=== PATIENT | female | born 1995 | race Caucasian/White ===

== ENCOUNTER → 2021-12-14 13:10 | Outpatient (CLI) | payer BC, SELFPAY ==
--- NOTE | ~2021-12-14 | US_ITS ---
EXAMINATION: US OB <= 14 weeks fetus DATE: 12/14/2021 13:43 INDICATION: First trimester dating TECHNIQUE: Real-time pelvic transabdominal and transvaginal ultrasound was performed. COMPARISON: None. FINDINGS: The uterus measures 13.9 x 5.8 x 8 cm. There is an intrauterine gestational sac. A yolk sa c is identified. heart motion is identified measuring 169 beats per minute (bpm) by M-mode Dopp ler. The crown rump length measures 3.4 cm , which correlates with an estimated gestational age of 10 weeks and 2 day(s) (+/-) 6 day(s). The ovaries are not visualized however no adnexal abnormality is seen. There is no free fluid in the pelvis. IMPRESSION: 1. Live intrauterine with an estimated gestational age of 10 weeks and 2 day(s) (+/-) 6 day (s) and an estimated delivery date of 07/10/2022. Reviewed, dictated and finalized at location F. IMPRESSION: 1. Live intrauterine with an estimated gestational age of 10 weeks an d 2 day(s) (+/-) 6 day(s) and an estimated delivery date of 07/10/2022.
== END ==
PROVIDERS: PCP Family Medicine; Visit Provider Advanced Practice Midwife
DX: Z34.91 Encounter for supervision of normal pregnancy, unspecified, first trimester (principal); Z3A.10 10 weeks gestation of pregnancy
CPT/HCPCS: 76801

== ENCOUNTER → 2022-02-15 13:51 | Outpatient (CLI) | payer BC, SELFPAY ==
--- NOTE | ~2022-02-15 | US_ITS ---
EXAMINATION: US OB /maternal detail DATE: 02/15/2022 15:05 INDICATION: Second trimester anatomic survey TECHNIQUE: Real-time ultrasound of the pelvis was performed. COMPARISON: None. FINDINGS: There is a single living fetus in vertex presentation. The placenta is anterior and 3.9 cm from the i nternal cervical os. The cervical length is 4 cm. heart rate is 153 beats per minute (bpm). Fe rosmery cardiac activity and movement are noted. The amniotic fluid index is subjectively normal. The following anatomy was identified as normal: 4 chamber heart 3 vessel cord cord insertion kidneys urinary bladder stomach spine diaphragm ventricles cisterna magna cerebellum The following biometric data were obtained: Biparietal diameter (BPD): 4.5 cm; head circumference (HC): 16.6 cm; abdominal circumference (AC): 14 .7 cm; femur length (FL): 2.9 cm. These measurements are concordant. Estimated weight is 291 g +/- 43 g, which correlates with the 54th percentile when 07/10/2022 is used as estimated date of delivery. As single measurements, these parameters are each equal to the following estimated gestational ages w ith ranges of +/- 2 standard deviations: BPD: 19 weeks 4 days ( 17 weeks 6 days - 21 weeks 3 days). HC: 19 weeks 2 days ( 17 weeks 6 days - 20 weeks 6 days). AC: 20 weeks 0 days ( 17 weeks 6 days - 22 weeks 0 days). FL: 18 weeks 6 days ( 17 weeks 0 days - 20 weeks 4 days). estimated gestational age based solely on measurements from this exam is 19 weeks 3 days +/- 1 weeks 3 days. IMPRESSION: 1. Single living fetus in vertex presentation. 2. Estimated weight is 291 g +/- 43 g, which correlates with the 54th percentile when 07/10/2022 is used as estimated date of delivery. Reviewed, dictated and finalized at location A. IMPRESSION: 1. Single living fetus in vertex presentation. 2. Estimated weight is 291 g +/- 43 g, which correlates with the 54th per centile when 07/10/2022 is used as estimated date of delivery.
== END ==
PROVIDERS: PCP Advanced Practice Midwife; Visit Provider Advanced Practice Midwife
DX: Z36.9 Encounter for antenatal screening, unspecified (principal); Z3A.19 19 weeks gestation of pregnancy
CPT/HCPCS: 76805

== ENCOUNTER → 2022-04-26 10:52 | Outpatient (CLI) | payer BC, SELFPAY ==
--- NOTE | ~2022-04-26 | US_ITS ---
EXAMINATION: US OB follow up DATE: 04/26/2022 11:25 INDICATION: Size greater than dates during third trimester TECHNIQUE: Real-time ultrasound of the pelvis was performed. The interpreting radiologist was not pre sent for the study. COMPARISON: 02/15/2022 FINDINGS: There is a single living fetus in vertex presentation. The placenta is anterior and 6.6 cm from the internal cervical os. cardiac activity and movement are noted. heart rate is 144 beats per minute (bpm). The amniotic fluid index is 17.7 cm which is normal (normal range: 9.2 cm to 23.1 cm). The following biometric data were obtained: Biparietal diameter (BPD): 7.9 cm; head circumference (HC): 28.3 cm; abdominal circumference (AC): 27 .2 cm; femur length (FL): 5.9 cm. These measurements are concordant. Estimated weight is 1715 g +/- 257 g, which correlates with the 94th percentile when 07/10/2022 is used as estimated date of delivery. As single measurements, these parameters are each equal to the following estimated gestational ages w ith ranges of +/- 2 standard deviations: BPD: 31 weeks 5 days +/- 3 weeks 1 days. HC: 31 weeks 0 days +/- 3 weeks 0 days. AC: 31 weeks 2 days +/- 3 weeks 0 days. FL: 30 weeks 6 days +/- 3 weeks 0 days. estimated gestational age based solely on measurements from this exam is 31 weeks 2 days +/- 2 weeks 1 days. IMPRESSION: 1. Single living fetus in vertex presentation. 2. Normal amniotic fluid index. 3. Estimated weight is 1715 g +/- 257 g, which correlates with the 94th percentile when 07/10/19 23 is used as estimated date of delivery. Reviewed, dictated and finalized at location B. 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 Single living fetus in vertex presentation. 2. Normal amniotic fluid index. 3. Estimated weight is 1715 g +/- 257 g, which correlates with the 94th p ercentile when 07/10/2022 is used as estimated date of delivery.
== END ==
PROVIDERS: PCP Obstetrics & Gynecology Gynecology; Visit Provider Obstetrics & Gynecology Gynecology
DX: O36.63X0 Maternal care for excessive fetal growth, third trimester, not applicable or unspecified (principal); Z3A.31 31 weeks gestation of pregnancy
CPT/HCPCS: 76816

== ENCOUNTER → 2022-06-06 08:05 | Outpatient (CLI) | payer BC, SELFPAY ==
--- NOTE | ~2022-06-06 | US_ITS ---
EXAMINATION: US OB follow up DATE: 06/06/2022 08:34 INDICATION: Gestational size greater than dates. TECHNIQUE: Real-time transabdominal obstetric ultrasound. FINDINGS: Comparison to multiple prior studies sequentially, with oldest reviewed study dated 2021. There is a single living fetus in vertex presentation. The placenta is anterior without placenta pre via. DARA is normal measuring 13.1 cm. cardiac activity and movement is noted with a heart rate of 157 beats per minute. T he amniotic fluid volume is normal. The following biometric data were obtained: BPD: 92mm corresponds to gestational age 37 weeks 2 days. Head circumference: 324mm corresponds to gestational age 36 weeks 5 days. Abdominal circumference: 337mm corresponds to gestational age 37 weeks 4 days. Femur length: 68mm corresponds to gestational age 35 weeks 0 days. Estimated weight: 3036grams +/- 455grams, 89% by Hadlock method.] IMPRESSION: 1. Single living intrauterine in vertex presentation with an estimated gestational age of 35 weeks 1 days by inititial ultrasound. Appropriate interval growth. 2. Normal placenta. Reviewed, dictated and finalized at location A. 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 Single living intrauterine in vertex presentation with an estimat ed gestational age of 35 weeks 1 days by inititial ultrasound. Appropriate int erval growth. 2. Normal placenta.
== END ==
PROVIDERS: PCP Advanced Practice Midwife; Visit Provider Advanced Practice Midwife
DX: O36.63X0 Maternal care for excessive fetal growth, third trimester, not applicable or unspecified (principal); Z3A.35 35 weeks gestation of pregnancy
CPT/HCPCS: 76816

== ENCOUNTER 2022-07-04 05:00 | Inpatient (IN) | payer BC, SELFPAY ==
[2022-07-04] VITALS (37 sets, daily range): BP systolic 72–131; BP diastolic 15–115; PULSE 63–125; TEMP 36.2–36.8; BMI 52.9
--- NOTE | 2022-07-04 05:47 | LDADM ---
This patient, Arleth Shaw, was admitted to Labor/Delivery/Recovery 104 on 07/04/22 at 05:00. Plans for labor, pain management and were discussed with patient. Patient/family oriented to hospital policies and general routines including ID bracelet, bed and alarms, visiting hours, pain management, procedures, bathroom and other care routines, personal items, smoking policy, room service/diet and guest tray routines, security routines, and visiting hours. Patient/Family are encouraged to report perceived risks to care and to ask questions if they do not understand what they are told or what they should do. See OBIX for further documentation.
[2022-07-04 06:09] LABS: Basophils Percent Auto 0.3 % (0.2-1.2); Eosinophils Absolute Auto 0.1 K/mm3 (0-0.3); Eosinophils Percent Auto 1.3 % (0-4.4); Hematocrit 33.8 % (37.0-47.0); Hemoglobin 11.5 g/dL (12.0-15.0); Immature Granulocyte Absolute 0.15 K/mm3 (0.00-0.031); Immature Granulocyte Percent A 1.6 % (0-0.5); Lymphocytes Absolute Auto 1.69 K/mm3 (0.9-3.2); Mean Corpuscular Hemoglobin 29.9 pg (26-34); Mean Corpuscular Volume 87.8 fl (80-100); Mean Platelet Volume 10.4 fl (7.4-10.4); Monocytes Absolute Auto 0.7 K/mm3 (0.1-0.6); Monocytes Percent Auto 7.7 % (2.6-8.5); Neutrophils Absolute Auto 6.7 K/mm3 (1.3-6.7); Neutrophils Percent Auto 71.1 % (45.5-73.1); Platelet Count Result 168 k/mm3 (150-375); Red Blood Count 3.85 M/mm3 (4.2-5.4); Red Cell Distribution Width 12.8 % (11.5-14.5); White Blood Count 9.4 K/mm3 (4.5-10.0)
[2022-07-04] MEDS: miSOPROStol 25 MCG TABLET PO ×3 (06:54→15:44)
--- NOTE | 2022-07-04 08:13 | WPDOBADMIT ---
Obstetrics - Admit Note Admission Note: record reviewed. No pertinent additions to the history and/or any subsequent changes in the physical findings that are not consistent with the expected course of the were found. Additions to the history and/or subsequent changes in the physical findings follow. None.
--- NOTE | 2022-07-04 08:14 | PM.OBPNLAB ---
Pain Control Date/time seen: 07/04/22 08:05 Pain control: tolerating well Contractions Monitor mode: External Contraction pattern: Irregular Contraction intensity: Mild Status status: Category l Assessment and Plan Assessment: induction ongoing Comments: CNM at bedside. Discussed plan of care with patient. Will anticipate a 2nd Cytotec unless uterine contractions become stronger and regular. Discussed possible interventions during the induction process including Naylor balloon placement, amniotomy, and placement of an IUPC. Answered patient questions. Blood pressures remain WNL.
[2022-07-04 10:39] LABS: Rapid Plasma Reagin Non-Reactive (NonReactive)
--- NOTE | 2022-07-04 15:44 | PM.OBPNLAB ---
Pain Control Date/time seen: 07/04/22 15:35 Pain control: tolerating well Pelvic Exam Dilation (cm): 1 (1.5) Effacement (%): 50 station: -3 Amniotic membrane status: Intact Comments: Moderate consistency. head palpated. Contractions Monitor mode: External Contraction pattern: Irregular Contraction intensity: Mild Status status: Category l Assessment and Plan Assessment: induction ongoing Comments: CNM at bedside. Discussed next steps in IOL process. Discussed another dose of sublingual cytotec and yousif balloon placement. Pt is agreeable and declines need for epidural. Bedside US performed to confirm vertex presentation. Yousif balloon catheter placed easily through internal os using stylette. Stylette removed and balloon inflated with 60ml sterile saline. Tubing secured to thigh. Plan for cytotec now and pitocin to be started in 4 hours. All questions answered. Spouse present and supportive.
[2022-07-04] MEDS: LACTATED RINGERS 1,000 ML 125 ML IV CONT ×2 (19:30→22:41)
[2022-07-04] MEDS: OXYTOCIN 30 UNITS/NS 500 ML 30 UNITS/500 ML BAG IV CONT (19:31)
[2022-07-05] VITALS (252 sets, daily range): BP systolic 54–137; BP diastolic 13–111; PULSE 28–182; RESP 18; TEMP 36.6–38.3; O2SAT 79–100
[2022-07-05] MEDS: LACTATED RINGERS 1,000 ML 125 ML IV CONT (04:53)
--- NOTE | 2022-07-05 07:05 | PM.OBPNLAB ---
Pain Control Date/time seen: 07/05/22 0650 Pain control: tolerating well and epidural Comments: pt reports her water may have broken as CNM walked into room. Pelvic Exam Dilation (cm): 5 (1.5) Effacement (%): 75 station: -3 Amniotic membrane status: Ruptured Comments: clear fluid. Pt had SROM Contractions Monitor mode: External (RN reports ctx difficult to trace despite frequent toco repositioning. ) Contraction pattern: Irregular Contraction intensity: Moderate Status status: Category l Assessment and Plan Pitocin rate (mU/min): 12 (Decreased to 6ml/hr after SROM confirmed) Assessment: induction ongoing Comments: CNM to bedside. Discussed plan of care. Discussed next steps including amniotomy and recommendation for intrauterine pressure catheter. Patient reports that her water may have just broken. On exam, patient grossly ruptured with clear fluid. IUPC inserted easily and returned clear fluid. Pitocin infusion decreased to 6 mL an hour. Plan to increase Pitocin as needed to achieve adequate contraction pattern. Anticipate vaginal .
--- NOTE | 2022-07-05 12:17 | PM.OBPNLAB ---
Pain Control Date/time seen: 07/05/22 1150 Pain control: tolerating well and epidural Pelvic Exam Comments: No exam at this time Contractions Monitor mode: Internal (RN reports ctx difficult to trace despite frequent toco repositioning. ) Contraction pattern: Regular Assessment and Plan Assessment: induction ongoing Comments: CNM at bedside. tracing reviewed. Discussed plan of care with patient and her family. contractions are becoming closer together and she is nearly adequate. Will defer exam until contractions are adequate for 2 hours, unless there is another indication.
--- NOTE | 2022-07-05 17:32 | PM.OBPNLAB ---
Pain Control Date/time seen: 07/05/22 17:15 Pain control: tolerating well and epidural Comments: Feeling occasional pressure in her pelvis from contractions Pelvic Exam Dilation (cm): 8 (1.5) Effacement (%): 90 station: -1 Amniotic membrane status: Ruptured Contractions Monitor mode: Internal (RN reports ctx difficult to trace despite frequent toco repositioning. ) Contraction pattern: Regular Intrauterine tone measurement: 180 Status status: Category ll Comments: Reassured by moderate variability Assessment and Plan Assessment: active labor Plan: continuous present management Comments: SVT 8 cm. More cervix present on patient's right side. Recommend positioning the patient on far right with left leg on peanut ball to allow for optimal rotation and descent. Patient remains afebrile.
--- NOTE | 2022-07-05 18:21 | PM.OBPNLAB ---
Pain Control Date/time seen: 07/05/22 18:15 Contractions Intrauterine tone measurement: 180 Assessment and Plan Comments: Discussed pt status with Dr. Nagy. Plan for Ampicillin and Gentamycin for chorioamnionitis.
[2022-07-05] MEDS: ACETAMINOPHEN 500 MG TABLET 1000 MG PO (18:32)
[2022-07-05] MEDS: AMPICILLIN 2 GM/NS 100 ML 2 GM/100 ML BAG IVPB (18:42)
[2022-07-05] MEDS: OXYTOCIN 30 UNITS/NS 500 ML 30 UNITS/500 ML BAG 125 UNITS IV CONT (19:34)
[2022-07-05] MEDS: miSOPROStol 200 MCG TABLET 800 MCG RECTAL (19:45)
--- NOTE | 2022-07-05 20:18 | P.PCNOB_ITS ---
OB - Delivery Note Procedure Delivery date: 07/05/22 Procedure: Events: Gestational Hypertension Intrapartal Events: Chorioamnionitis Induction method: Per Misoprostol Protocol and Per Pitocin Protocol Delivery augmentation: Pitocin Delivery monitor: External FHT, External Uterine and Internal Uterine Route of delivery: Episiotomy description: None Laceration Description: Perineal - 2nd Degree Delivery repair: vicryl Specimen: Yes Quantitative Blood Loss (ml): 150 Anesthesia type: Epidural Disposition: Floor Narrative: Patient began pushing with contractions and quickly brought the head to a crown. With 1 push, she delivered the head. There was excellent restitution and delivery of the anterior and posterior shoulders. The was placed on maternal abdomen and dried and stimulated. Care assumed by nursery team. After 1 minute of life the cord was doubly clamped and cut. Cord blood and cord gases were obtained. The placenta delivered easily in Schultze presentation. All delivery counts correct. weight unavailable at the time of this note as is skin to skin on the maternal abdomen and . [place] Baby Date of : 07/05/22 Time of : 19:20 Weeks of gestation at delivery: 39 gender: Female presentation: vertex position: Left Occiput Anterior Placenta delivery description: Spontaneous Cord Vessel Description: 3 Vessels score one minute: 9 score five minutes: 9
[2022-07-05] MEDS: BENZOCAINE 20% AER SPR (*SP) 56 GM CAN 1 SPRAY TOPICAL (21:41)
[2022-07-05] MEDS: WITCH HAZEL 40 PADS 1 PAD TOPICAL (21:41)
--- NOTE | 2022-07-05 22:40 | OBPPTRN ---
Patient transferred to post room #285 via ( wheelchair ). Support person present. Oriented to unit, room, information board, rooming in, admission packet and security measures. Patient verbalizes understanding.
[2022-07-06] MEDS: ACETAMINOPHEN 325 MG TABLET 650 MG PO ×3 (00:05→19:53)
--- NOTE | 2022-07-06 04:38 | PM.OBDSVD ---
DS: Admitting Diagnosis Discharge Date 07/07/22 Admitting Diagnosis 26 y.o. G1PO at 39 weeks [facility] DS: Discharge Diagnosis Discharge Diagnosis (1) (normal spontaneous vaginal delivery): Code(s): O80 - Encounter for full-term uncomplicated delivery Status: Acute (2) Mother currently breast-feeding: Code(s): Z39.1 - Encounter for care and examination of lactating mother Status: Acute (3) Gestational hypertension: Code(s): O13.9 - Gestational [-induced] hypertension without significant proteinuria, unspecified trimester Status: Acute (4) Obesity: Code(s): E66.9 - Obesity, unspecified Status: Acute OB - DS: Summary Hospital Course Hospital Course: Uncomplicated OB Procedures : Ultrasound OB Procedures Intrapartum: Spontaneous Vag Delivery and Other (Antibiotic administration for chorioamnionitis) OB Procedures: : None Peripartum Data Delivery Method: Natural Vaginal Laceration Description: Perineal - 2nd Degree Episiotomy description: None complications: none Time Spent with Patient Time attestation: Total time spent providing and/or coordinating discharge services: Discharge Plan Discharge Attending physician on discharge: Clarita Nagy Discharging Clinician: Clarita Nagy Patient Disposition: Home, Self-Care Activity: may shower Diet: as tolerated and regular Discharge Instructions: Education: Mom and Baby Guide Given to: Mother Follow-Up: Call your delivering provider's office for an appointment to be seen in: 6 Weeks Mom and baby [facility] for the follow-up appointment. Appointment Date/Time: Friday, July 08, 2022 at 8:00 a.m. What to expect at your follow-up visit: Blood Pressure Check Physical Assessment Call [phone] if you are unable to keep your appointment time. BREAST CARE: * Wear a snug supportive bra. * For engorgement discomfort: Breast Feeding: * Apply warm moist washcloths * Express milk as needed to relieve engorgement * Wear loose clothing * For sore nipples: * Identify correct latch-on * Apply warm moist washcloths before and after nursing * Air dry nipples after nursing * May apply Lansinoh cream to nipples EPISIOTOMY/PERINEAL CARE: * Until bleeding stops, use your mily bottle after urinating * Change your pad frequently throughout the day * You may take sitz baths several times a day (fill your bathtub with warm water and soak for 20 minutes.) Do NOT bathe in the water * No tub baths until seen by your physician - You may shower ACTIVITY: * Rest as much as possible. * Do not exercise or lift anything heavier than your baby (such as laundry or other children.) * Avoid stairs or driving as much as possible. * Do not put anything into the vagina. No douching, tampons, or sexual activity until seen by physician. NOTIFY PHYSICIAN IF YOU HAVE ANY QUESTIONS OR IF ANY OF THE FOLLOWING SYMPTOMS OCCUR: * If your perineum becomes red, swollen, or more painful than what you have experienced in the hospital. * If your vaginal bleeding becomes foul smelling. * If your vaginal bleeding becomes more heavy than a period or if your bleeding changes from pink to bright red. However, you may pass an occasional walnut-sized clot once or twice for the first week . * If you experience a sharp, shooting pain in you calves. * If you discover a hard, reddened area on your breast or if you experience flu-like symptoms. DIET: * Eat regular, well-balanced meals. * Drink plenty of fluids daily. If , drink to thirst. Continue taking your vitamin and any other supplements as previously directed (Examples: Iron, Vitamin D). You may take Tylenol 1000mg over the counter every 6 hours as needed for pain. Do not exceed 4
[2022-07-06 04:40] VITALS: BP 131/74; PULSE 92; RESP 18; TEMP 36.9; O2SAT 100; BMI 51.7
[2022-07-06] MEDS: IBUPROFEN 600 MG TABLET PO ×3 (04:43→23:30)
[2022-07-06 05:24] LABS: Hematocrit 31.5 % (37.0-47.0); Hemoglobin 10.3 g/dL (12.0-15.0)
[2022-07-06 08:00] VITALS: BP 124/56; PULSE 86; RESP 18; TEMP 36.3; O2SAT 100
--- NOTE | 2022-07-06 08:19 | PM.OBPNVD ---
OB - PN: Subj Subjective Date/time seen: 07/06/22 0710 Patient comments: no complaints and pain well controlled baby status: doing well and nursing well [place] feeding status: exclusively breast feeding OB - PN: Obj Data Labs 07/06/22 04:49 Labs: Laboratory Results - last 24 hr 07/06/22 04:49 Hgb 10.3 L Hct 31.5 L OB - PN A/P Plan day: 1 Plan: routine care Time Spent With Patient Time: Total time spent is greater than 50% in coordination of care (as documented) at patient's floor/unit and/or counseling patient: Review of Systems Review of Systems: All systems reviewed & are unremarkable except as noted in HPI and below Exam Narrative: Alert and oriented. Mood is pleasant and cooperative. Urinating without difficulty. Denies passing any large clots. Perineum with minimal edema. Fundus firm and below umbilicus. Const: General: cooperative, healthy appearing, no acute distress and alert Orientation/consciousness: patient oriented x3 Limitations: no limitations Resp: Effort & Inspection: normal respiratory effort Auscultation: clear to auscultation bilaterally Cardio: Rate: regular rate GI: Inspection: normal to inspection Neuro: General: patient oriented x3 Extrem: General: normal to inspection Psych: Appearance: grossly normal Mental Status: mental status grossly normal Affect: normal affect Thought process: Normal thought process present
[2022-07-06] MEDS: DOCUSATE SODIUM 100 MG CAPSULE PO ×2 (08:53→15:58)
[2022-07-06] MEDS: MULTIVIT/MIN/PREN/FOL AC/IRON TABLET 1 TAB PO (08:53)
--- NOTE | 2022-07-06 08:58 | WPDANESPN ---
Anes - Prog Note Post-Op Date/Time: 07/06/22 08:58 Cardiovascular status: normal Respiratory status: normal Airway patency: baseline Mental status: baseline Post-Op hydration status: normal Vital Signs: Last Vital Signs Temp 36.9 C 07/06/22 04:40 Pulse 92 07/06/22 04:40 Resp 18 07/06/22 04:40 BP 131/74 07/06/22 04:40 Pulse Ox 100 07/06/22 04:40 O2 Del Method Room Air 07/04/22 05:45 Pain Score (VAS): 0 I/O: Intake & Output 07/05/22 07/06/22 07/06/22 23:59 07:59 15:59 Intake Total 702.25 250 Output Total 150 Balance 552.25 250 Laboratory Tests 07/06/22 04:49 07/06/22 04:49 Hgb 10.3 L Hct 31.5 L Post-procedural complaints: none Patient Feedback: Patient satisfied with anesthetic care.
--- NOTE | 2022-07-06 08:59 | WPDANLDPN2 ---
Anes-Prog Note L&D Date/Time: 07/06/22 08:59 Comfortable throughout: labor and delivery Neuraxial method: epidural Epidural/Spinal procedure site: clean & non-tender Neuro status: Neuro function grossly intact. Cardiovascular status: normal Respiratory status: normal Airway patency: baseline Mental status: baseline Post-Op hydration status: normal Vital Signs: Last Vital Signs Temp 36.9 C 07/06/22 04:40 Pulse 92 07/06/22 04:40 Resp 18 07/06/22 04:40 BP 131/74 07/06/22 04:40 Pulse Ox 100 07/06/22 04:40 O2 Del Method Room Air 07/04/22 05:45 Pain score (VAS): 0 I/O: Intake & Output 07/05/22 07/06/22 07/06/22 23:59 07:59 15:59 Intake Total 702.25 250 Output Total 150 Balance 552.25 250 Post-procedural complaints: none Patient feedback: Patient satisfied with anesthetic care.
[2022-07-06 16:00] VITALS: BP 108/71; PULSE 86; RESP 18; TEMP 36.9; O2SAT 100
[2022-07-06 19:51] VITALS: BP 122/79; PULSE 91; RESP 16; TEMP 36.6
[2022-07-06 23:25] VITALS: BP 137/97; PULSE 74; RESP 20; TEMP 36.4
[2022-07-07] MEDS: ACETAMINOPHEN 325 MG TABLET 650 MG PO (02:24)
[2022-07-07 02:43] VITALS: BP 118/84; PULSE 80; RESP 16; TEMP 36.4
[2022-07-07 08:00] VITALS: BP 135/82; PULSE 88; RESP 18; TEMP 36.8; O2SAT 97
--- NOTE | 2022-07-07 08:47 | PM.OBPNVD ---
OB - PN: Subj Subjective Date/time seen: 07/07/22 08:47 Patient comments: no complaints and pain well controlled baby status: doing well OB - PN: Obj Data Labs 07/06/22 04:49 OB - PN A/P Plan day: 2 Plan: routine care, discharge home, follow up 6 weeks and other (plans condoms) Time Spent With Patient Time: Total time spent is greater than 50% in coordination of care (as documented) at patient's floor/unit and/or counseling patient: Exam : Bimanual exam- vagina & uterus: other (Uterus firm, nt @U)
[2022-07-07] MEDS: MULTIVIT/MIN/PREN/FOL AC/IRON TABLET 1 TAB PO (10:12)
[2022-07-07] MEDS: IBUPROFEN 600 MG TABLET PO (10:13)
[2022-07-07] MEDS: DOCUSATE SODIUM 100 MG CAPSULE PO (10:13)
--- NOTE | 2022-07-07 12:45 | PC.NURSE ---
Patient viewed the discharge video Mother & Baby Care, The First Two Weeks . Patient was given the opportunity and encouraged to ask questions. Patient verbalized understanding of information shared and has been given the mother/baby guide for home reference.
[2022-07-08 07:54] VITALS: BP 130/92; PULSE 83; RESP 20; TEMP 36.6; O2SAT 99
== END 2022-07-07 13:45 | disposition home or self-care (01) | DRG 805 ==
LOC: ANHOB2 07-07 12:49 → ANHLDR 07-09 10:17 → ANHOB2 07-09 10:17
PROVIDERS: Admitting Provider Obstetrics & Gynecology Gynecology; PCP Advanced Practice Midwife; Visit Provider Advanced Practice Midwife
DX: O75.2 Pyrexia during labor, not elsewhere classified (principal); O41.1230 Chorioamnionitis, third trimester, not applicable or unspecified; Z37.0 Single live birth; O13.4 Gestational [pregnancy-induced] hypertension without significant proteinuria, complicating childbirth; O99.214 Obesity complicating childbirth; O76 Abnormality in fetal heart rate and rhythm complicating labor and delivery; Z3A.39 39 weeks gestation of pregnancy
CPT/HCPCS: 36415; 85014; 85018; 85025; 86592; 86850; 86900; 86901; 88307; A9270; J0290; J1580; J2590; J2795; J7120

== ENCOUNTER 2022-07-11 07:00 | Outpatient (CLI) | payer BC, SELFPAY ==
--- NOTE | 2022-07-12 11:27 | PC.NURSE ---
In- 0700 on 07/11/22 and introduction were made. Out- 08 with a plan of following up later with a phone call and an offer of additional assistance if needed. Reason for visit: latch issues and low milk supply History: Mother denies any significant history. Mother was admitted for an induction on 07/04 and delivered on 07/05. History: No significant history. Observations: Mother is somewhat comfortable moving into a football position. Her breast are apart with somewhat of a wide space, sparse hair visualized around the areola with nipples everted. The left nipple has a healing crease injury. Mother was instructed to keep her breast, hands and anything touching her breast clean and dry. Reviewed preventing infections. Breast tissue is flaccid. Infant was placed skin to skin on mother, reviewed stimulating infant for feeding cues and wakefulness. Father states infant had bottle fed 1 oz at 0600. Once feeding cues were visualized and demonstrated some instincts finding the breast, then encouragement to latch effectively was attempted. Several attempts were made to the breast to obtain an optimal latch on the left breast. Educated parents on how to watch and listen for swallowing at the breast. Parents were encouraged to keep actively . Encouraged gentle massage to improve milk removal while breastfeeds and observe swallowing. After a 15 minute feeding had transferred 13mls according to the pre and post weight. Mother was encouraged to not limit on the breast unless there is pain. was again placed skin to skin and stimulated for waking to breastfeed. is reluctant to open with a wide gape. We were unable to encourage to open wide enough to latch effectively. Mother denied pain; however, the nipple was misshaped after the . Reviewed milk production, building, maintaining a milk supply with and/or with pumping. Risks and benefits of pumping were discussed. Related to the infant not transferring adequate milk to regain weight the parents were encouraged to continuing attempting to breastfeed, pump 8-12 times in a 24 hour period 1-2 times at night, then supplement 2-2.5 oz about every 8 hours. Encouraged the parents to follow up with the care provider for weight checks. The parent were instructed to add cold breast milk to cold breast milk along with collection and storage guidelines. When they collect 1 oz of breast milk is given that, then supplemented with formula for weight gain. weight: 3380g Lowest weight: 3020g Last weight: 6-15 reported by parents at the last [facility] appt. Pre-feed weight: 3116g 6-13.9 Post-feed weight: 3137g after on both breast Plan of Care: Parents are going to practice more skin to skin, every 2-3 hours today with pumping and supplementing after each . Mother is encouraged to wait for a big, open, wide gape of 130-150 degrees, latching deeply with pulled close to her body with ear, shoulder and hip aligned, encouraging milk removal and more consistency with milk removal. Follow up plans: Plan was made to follow up with a phone call later today (07/11/22). Phone call was made to follow up to [facility]le[facility]'s phone number [phone] at 1600 on 07/11/22 and a message was left to return phone call to check on progress.
== END 2022-07-11 07:01 | disposition home or self-care (01) ==
PROVIDERS: Visit Provider Pediatrics
DX: O92.3 Agalactia (principal); Z3A.00 Weeks of gestation of pregnancy not specified
CPT/HCPCS: 99213; G0463

== ENCOUNTER 2024-01-23 10:19 | Outpatient (CLI) | payer BC, SELFPAY ==
--- NOTE | ~2024-01-23 | US_ITS ---
Pelvic ultrasound. Clinical History: First trimester , establish dates and viability Technique: Realtime transabdominal scanning of the pelvis was performed. Color flow Doppler and Doppl er spectral analysis were performed. Findings: The uterus is anteverted, and contains an intrauterine gestation. Marienthal-rump length of 2.0 cm corresponds to an estimated gestational age of 8 weeks 4 days. heart rate is 163 bpm. Neither ovary seen. No adnexal mass seen. There is no evidence of free fluid in the cul de sac. Impression: Live intrauterine gestation, with estimated gestational age of 8 weeks 4 days. heart rate is 16 3 bpm. Reviewed, dictated and finalized at location . Impression: Live intrauterine gestation, with estimated gestational age of 8 weeks 4 days. heart rate is 163 bpm.
== END 2024-01-23 10:20 ==
LOC: MICIMG 10:21
PROVIDERS: PCP Family Medicine; Visit Provider Advanced Practice Midwife
DX: O36.80X0 Pregnancy with inconclusive fetal viability, not applicable or unspecified (principal); Z3A.08 8 weeks gestation of pregnancy
CPT/HCPCS: 76801

== ENCOUNTER 2024-04-13 14:56 | Outpatient (CLI) | payer BC, SELFPAY ==
--- NOTE | ~2024-04-13 | US_ITS ---
EXAMINATION: US OB /maternal detail DATE: 04/13/2024 15:38 INDICATION: anatomic survey. TECHNIQUE: Real-time ultrasound of the pelvis was performed. COMPARISON: Ultrasound 01/23/2024 FINDINGS: There is a single living fetus in breech presentation. The placenta is anterior, 3.5 cm from the cer vix. heart rate is 143 beats per minute (bpm). The amniotic fluid volume is subjectively normal . The following biometric data were obtained: Biparietal diameter (BPD): 4.9 cm; head circumference (HC): 17.8 cm; abdominal circumference (AC): 15 .9 cm; femur length (FL): 3.2 cm. These measurements are concordant. Estimated weight is 361 g +/- 54 g, which correlates with the 69th percentile when 08/30/24 is u sed as estimated date of delivery. As single measurements, these parameters are each equal to the following estimated gestational ages: BPD: 20 weeks 5 days. HC: 20 weeks 2 days. AC: 21 weeks 0 days. FL: 20 weeks 0 days. estimated gestational age based solely on measurements from this exam is 20 weeks 4 days +/- 1 weeks 3 days. The cerebral ventricles, cerebellum, cisterna magna, nuchal fold, lip, and spine are normal. The hear t is normal. The diaphragm, stomach, kidneys, and bladder are normal. There are two umbilical arterie s to yield a 3-vessel cord. The cord insertion is normal. IMPRESSION: 1. Single living fetus in breech presentation. 2. Estimated weight is 361 g +/- 54 g, which correlates with the 69th percentile when 08/30/24 is used as estimated date of delivery. This date was set by ultrasound on 01/23/2024. 3. Normal anatomic survey. Reviewed, dictated and finalized at location B. IMPRESSION: 1. Single living fetus in breech presentation. 2. Estimated weight is 361 g +/- 54 g, which correlates with the 69th pe rcentile when 08/30/24 is used as estimated date of delivery. This date was set by ultrasound on 01/23/2024. 3. Normal anatomic survey.
== END 2024-04-13 14:57 | disposition home or self-care (01) ==
LOC: MICIMG 14:59
PROVIDERS: PCP Advanced Practice Midwife; Visit Provider Obstetrics & Gynecology Gynecology
DX: Z36.9 Encounter for antenatal screening, unspecified (principal); Z3A.20 20 weeks gestation of pregnancy
CPT/HCPCS: 76805

== ENCOUNTER 2024-09-03 04:57 | Inpatient (IN) | payer BC, SELFPAY ==
[2024-09-03] VITALS (99 sets, daily range): BP systolic 54–154; BP diastolic 31–116; PULSE 55–168; RESP 14–16; TEMP 36.5–37; O2SAT 74–100; BMI 49.5
--- OUTSIDE RECORDS SUMMARY | 2024-09-03 05:03 | XMS_ITS | Data Portability ---
Author Organization [facility] Address [address] [address] Care Team Providers Care Physician Asst Name Role Phone CUAUHTEMOC RÍOS Primary Care Provider Assessment Encounter Date Assessment Date Assessment LastModified by Organization Details LastModified Time 08/27/2024 08/27/2024 Patient is _39__weeks . Discussed plan. Not available 08/27/2024 15:14:58 09/01/2024 09/01/2024 Patient is 40___weeks . Discussed plan. [email or web address] Not available 09/01/2024 16:36:13 Plan of Treatment Reminders Order Date Submit Date Provider Last Modified By Organization Details Last Modified Time Details Appointments None recorded. Lab None recorded. Referral None recorded. Procedures None recorded. Surgeries None recorded. Imaging non-stress test 2024 025 [email or web address] [place], [address], [place], [address], 08:27:31 US, obstetric, biophysical profile + non-stress test 2024 025 [email or web address] [place], [address], [place], [address], 19:29:43 Medication Orders None recorded. Patient TargetsNo targets recorded. Patient InstructionsNo instructions recorded. Reason for Referral None Reported. Results Created Date Observation Date Name Description Value Unit Range Abnormal Flag Note LastModifiedBy Organization Detail LastModifiedTime 08/04/19 25 08/04/2024 CULTU RE: GROUP B STREP SCREE N, REFLE X SUSCE PTIBI LITY result report SEE RESULT S BELOW Test: Cultu re: Group B Strep , Refle x Susce ptibi lity ([facility]/ [facility] ) Speci men Sourc e: Vagin a/Rec marc Speci men Type: Vagin al/Re ctal Speci men Date: 2024 1526 Resul t Date: 2024 1405 Resul t Statu s: Final resul t Abnor mal: No Resul ting Lab: [facility] [address] [facility] [address] Tel: CULTU RE ----- ----- ----- --- No Group B strep isola maxi at 2 days (amparo ctive broth enhan cemen t) Not Available [facility] (Lab) [address], [place], [address], 08/08/2024 23:59:46 09/02/19 25 09/01/2024 US, obste tric, bioph ysica l profi le + non-s tress test No observ ation record ed. [email or web address] [place] [address], [place], [address], 09/01/2024 15:43:20 09/02/19 25 09/01/2024 US, obste tric, bioph ysica l profi le + non-s tress test No observ ation record ed. [email or web address] [address], [place], [address], 09/01/2024 21:44:38 09/02/19 25 09/01/2024 non-s tress test No observ ation record ed. [email or web address] [place] [address], [place], [address], 09/01/2024 20:05:12 09/02/19 25 09/01/2024 non-s tress test No observ ation record ed. [email or web address] [place] [address], [place], [address], 09/01/2024 20:07:29 Result Notes None recorded. Problems Name Problem SNOMED Code Status Onset Date Resolution Date Notes Provider Name and Address Organization Details Recorded Time 48312392 Active 2024 Clarita lópez, [facility] 17:34:54 Obese 752875761 Active BMI- will decide if wants NST at 37 weeks Dipika Duarte CNM [address], [place], [address], [facility] 15:40:44 Problem Notes None recorded. Procedures Surgical History Date Name Laterality Status Provider Name and Address Organization Details Recorded Time 09/23/19 24 Date of Last Pap Smear completed Clarita Phelps [facility] 07/18/2024 14:27:40 06/16/19 00 Tonsillectomy completed Clarita Phelps [facility] 07/07/2024 17:31:01 06/16/18 96 procedure on ear completed Clarita Phelps [facility] 07/07/2024 17:31:24 06/16/18 95 procedure on ear completed Claritajenny Phelps [facility] 07/07/2024 17:31:17 Imaging Results Imaging Date Name Status LastModified by Organiz ation Details LastModified Time 09/01/2024 US, obstetric, biophysical profile + non-stress test completed [email or web address] [place] [address], [place], [address], 09/01/2024 15:43:20 09/01/2024 US, obstetric, biophysical profile + non-stress test active [email or web address] [address], [place], [address], 09/01/2024 21:44:38 09/01/2024 non-stress test completed [place] [address], [place], [address], 09/01/2024 20:05:12 09/01/2024 non-stress test completed [email or web address] [place] [address] [address], [place], [address], 09/01/2024 20:07:29 Procedure Notes None recorded. Medical Equipment None Reported. Allergies Allergen ID Allergen Name Allergen Category Reaction Reaction Severity Criticality Documentation Date Start Date Code Code System Note Provider Name and Address Organization Details Recorded Time 43019 amoxicill in medicatio n hives Not available Not available 07/02/2024 723 RxNorm Erin lópez [facility] 09:18:34 Medications Name Sig Start Date Stop Date Status Note LastModified by Organization Details LastModified Time sulfamethoxa zole 800 mg-trimethop rim 160 mg tablet TAKE 1 TABLET BY MOUTH EVERY 12 HOURS FOR 7 DAYS 07/07 completed Not Available Not Available Not Available ergocalcifer ol (vitamin D2) 1,250 mcg (50,000 unit) capsule TAKE 1 CAPSULE BY MOUTH EVERY WEEK active Not Available Not Available No t Available cefdinir 300 mg capsule TAKE 1 CAPSULE BY MOUTH EVERY 12 HOURS FOR 10 DAYS 08/04 completed Not Available Not Available Not Available Vitamin D 50,000 unit capsule 08/04 completed Not Available Not Available Not Available Asprin Ec Low Dose active Not Available Not Available Not Available + DHA active Not Available Not Available Not Available Breo Ellipta 100 mcg-25 mcg/dose powder for inhalation INHALE 1 PUFF BY MOUTH DAILY 07/07 completed Not Available Not Available Not Available Vitals Date Recorded Body height Body mass index (BMI) Body weight Systolic blood pressure Diastolic blood pressure Provider Name and Address Organization Details Last Updated DateTime 08/23/2024 162.56 cm 50.8 kg/m2 878083.3 4 g 134 mm[Hg] 76 mm[Hg] JOCELIN Samano [facility] 15:49:50 Date Recorded Body height Body mass index (BMI) Body weight Systolic blood pressure Diastolic blood pressure Provider Name and Address Organization Details Last Updated DateTime 08/27/2024 162.56 cm 51.2 kg/m2 377470.5 3 g 132 mm[Hg] 84 mm[Hg] Dipika Duarte, [facility] [address], [place], [address], [facility] 14:55:07 Date Recorded Body weight Body mass index (BMI) Body height Body height Body mass index (BMI) Body weight Systolic blood pressure Diastolic blood pressure Systolic blood pressure Diastolic blood pressure Provider Name and Address Organization Details Last Updated DateTime 793057. 93186 g 50.8 kg/m2 162.56 cm 162.56 cm 50.8 kg/m2 304898. 34 g 128 mm[Hg] 83 mm[Hg] 128 mm[Hg] 83 mm[Hg] Clarita Phelps [facility] 20:03:26 Social History Question Answer Notes LastModified by Organizat ion Details LastModified Time Tobacco Smoking Status Never Smoker Clarita Phelps [facility] 07/07/2024 17:30:48 Do You Have An Advance Directive? No [email or web address] Information not available 07/07/2024 What Is Your Level Of Alcohol Consumption? None [email or web address] Information not available 07/07/2024 If You Are , What Was Your Level Of Alcohol Consumption Prior To ? Occasional Information not available 07/07/2024 How Many Years Have You Consumed Alcohol? 10 [email or web address] Information not available 07/07/2024 Are You Blind Or Do You Have Difficulty Seeing? No [email or web address] Information not available 07/07/2024 What Is Your Level Of Caffeine Consumption? Moderate Information not available 07/07/2024 In The 14 Days Before Symptom Onset, Have You Had Close [facility] While That Case Was Ill? No [email or web address] Information not available 07/07/2024 In The 14 Days Before Symptom Onset, Have You Had Close Contact With A Person Who Is Under Investigation For COVID-19 While That Person Was Ill? No [email or web address] Information not available 07/07/2024 Have You Been To An Area Known To Be High Risk For COVID-19? Yes [email or web address] Information not available 07/07/2024 Are You Deaf Or Do You Have Serious Difficulty Hearing? No [email or web address] Information not available 07/07/2024 What Type Of Diet Are You Following? REGULAR [email or web address] Information not available 07/07/2024 What Is The Highest Grade Or Level Of School You Have Completed Or The Highest Degree You Have Received? 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 Yes [email or web address] Information not available 07/07/2024 Do You Use Protection During Sex? Usually [email or web address] Information not available 07/07/2024 Do You Use Your Seat Belt Or Car Seat Routinely? Yes Information not available 07/07/2024 Do You Have Smoke And Carbon Monoxide Detectors In Your Home? Yes [email or web address] Information not available 07/07/2024 How Much Tobacco Do You Smoke? No [email or web address] Information not available 07/07/2024 Do You Feel Stressed (tense, Restless, Nervous, Or Anxious, Or Unable To Sleep At Night)? GT44103-0 [email or web address] Information not available 07/07/2024 Do You Use Any Illicit Or Recreational Drugs? No [email or web address] Information not available 07/07/2024 Do You Use Sunscreen Routinely? Yes [email or web address] Information not available 07/07/2024 Has Tobacco Cessation Counseling Been Provided? No [email or web address] Information not available 07/07/2024 Have You Used IV Drugs? No [email or web address] Information not available 07/07/2024 Do You Or Have You Ever Used Any Other Forms Of Tobacco Or Nicotine? No Information not available 07/07/2024 Sex: Unknown Functional Status Question Answer Note LastModified by Organizat ion Details LastModified Time Do you have difficulty walking or climbing stairs? No [email or web address] Information not available 07/07/2024 Are you able to walk? YESWOREST [email or web address] Information not available 07/07/2024 Are you able to care for yourself? Yes [email or web address] Information not available 07/07/2024 Do you have difficulty dressing or bathing? No [email or web address] Information not available 07/07/2024 What is your exercise level? Occasional [email or web address] Information not available 07/07/2024 Mental Status None recorded. Family History Relationship Description Onset Age of this Age Resolved Age Notes LastModified by Organization Details LastModified Time Mother Disorder of thyroid gland [email or web address] Not available 07/07 17:28:34 Mother Anxiety disorder Not available 07/18 13:33:19 Mother Depressive disorder [email or web address] Not available 07/18 13:33:28 Mother Hypertensive disorder [email or web address] Not available 07/18 13:33:52 Mother Diverticulit is [email or web address] Not available 2024 14:52:02 Maternal Grandmother Diabetes mellitus [email or web address] Not available 07/18 13:34:10 Father Acute hepatitis dad got while at work [email or web address] Not available 09/01/2024 14:52:02 Father Seizure disorder Not available 2024 14:52:02 Paternal Grandmother Malignant tumor of lung [email or web address] Not available 07/18 13:36:30 Maternal Grandfather Coronary arterioscler osis [email or web address] Not available 2024 14:52:02 Medical History Condition Response Allergies (Food, seasonal, environmental ) Y Other Y Drug/Latex Allergies/Reactions N Blood Transfusion N Breast Cancer N Dermatologic Disorders Y Lung Disease N Defects or Inherited Disease N Breast Problem N Gestational Diabetes N Hematologic disorders N Anesthesia Complications N History of STI N Deep Vein Thrombosis N Polycystic ovary syndrome N Anxiety Disorder N Autoimmune disease N Arthritis N Polyps N Infertility N Acid Reflux (GERD) N History of abnormal pap N Cancer N Varicosities N Stroke N Neurologic/Epilepsy N Endometriosis N High Cholesterol N Fibromyalgia N Headaches N Kidney Disease N Heart Problems N Thyroid Problems N Kidney or Bladder Problems N GI Problems N Eating Disorder N Anemia N Art (IVF or FET) N Psychiatric Illness N Ovarian Cancer N Diabetes N Pulmonary (TB, Asthma) N Hepatitis/Liver Disease N No Past Medical History N Eczema N Urinary Tract Infection N Abuse/Domestic Violence N Asthma N Trauma/Violence N Depression/ depression N Heart Disease N Pre-Eclampsia N Hypertension Y Osteoporosis N Thrombophilias N Gynecological History Statement/Question Response Date of Last Mammogram Date of LMP 11/24/2023 On BCP's at Conception? N Was last menstrual period normal Y STIs/STDs N HPV Vaccine Y Duration of Flow (days) 6 Current Control Method Age at First Child 26 Date of Last Colonoscopy Sexually Active? Y Partner Vasectomy Date of DEXA bone scan Age of first menstrual cycle 13 Date of Last Pap Smear 09/23/2023 Sexual Problems? N Desired Control Method Partner Vas ectomy LMP Definite N Obstetrics History GPAL:G 2 P 1 0 0 1 Type Value Full Term 1 Living 1 Total 2 Past Encounters Encounter ID Performer Location Encounter Start Date Encounter Closed Date Diagnosis/Indication Diagnosis SNOMED-CT Code Diagnosis ICD10 Code Diagnosis Note [id number] Latrice Birmingham [place] [address],[place] [address] 07/07/2024 15:17:43 07/07/2024 16:14:31 Uterine size for dates discrepancy 806534593 O26.843 Z3A.32 [id number] Dipika Duarte [facility] [address],[place] [address] 07/07/2024 15:20:01 07/07/2024 17:48:06 Gestation period, 32 weeks 4023580 Z3A.32 Venereal d isease screening 358877202 Z11.3 Routine an tenatal care 176204186 Z34.90 [id number] Dipika Duarte [facility] [address],[place] [address] 07/21/2024 17:24:20 07/21/2024 18:08:14 Gestation period, 34 weeks 18886956 Z3A.34 [id number] [facility] [address],[place] [address] 08/04/2024 15:01:42 08/04/2024 15:42:37 Gestation period, 36 weeks 67932696 Z3A.36 [id number] [facility] [address],[place] [address] 08/13/2024 15:36:21 08/13/2024 15:58:28 Gestation period, 37 weeks 32522828 Z3A.37 [id number] SINCERE TRAVIS MD [place] [address],[place] [address] 08/23/2024 15:36:26 08/23/2024 17:30:43 Maternal obesity complicating , childbirth and the puerperium, antepartum 8081647080 07 O99.215 - previously declined NSTs Routine an tenatal care 186212507 Z34.83 [id number] Dipika Duarte CNM [place] [address],[place] [address] 08/27/2024 14:42:48 08/27/2024 15:22:05 Gestation period, 39 weeks 48002138 Z3A.39 [id number] Elidia Tovar [place] [address],[place] [address] 09/01/2024 14:51:59 09/01/2024 15:20:53 Post-term 40027348 O48.0 Z3A.40 [id number] Clarita Phelps [place] [address],[place] [address] 09/01/2024 14:52:32 09/02/2024 08:27:31 Post-term 50788183 O48.0 [id number] Dipika Duarte CNM [place] [address],[place] [address] 09/01/2024 14:52:50 09/01/2024 16:36:42 Gestation period, 40 weeks 34953847 Z3A.40 Health Concerns Section Related Observation LastModified by Organization Detai ls LastModified Time None Recorded Concern Status LastModified by Organization Details LastModified Time None Recorded Advance Directives Directive N: Payers Encounter Date Sequence Insurance Name Policy Number Policy Leahy Covered Member ID Leahy Member ID Guarantor Name 08/23/2024 1 [place] [id number] Jake Shaw [id number] Jake Shaw 08/27/2024 1 [place] [id number] Jake Shaw [id number] aJke Shaw 09/01/2024 1 [place] [id number] Jake Shaw [id number] Jake Shaw 09/01/2024 1 [place] [id number] Jake Shaw [id number] Jake Shaw 09/01/2024 1 [place] [id number] Jake Shaw [id number] Jake Shaw OBGyn Episode Ob Episode Information Episode Created Date Number of Fetuses Patient Bloodtype Patient rh Status Prepregnancy Weight lbs Domestic Partner Domestic Partner Phone Father Name Signal Operator Technical Status 07/07/19 25 1 CLOSED Fetus Data First Name Last Name Admitted to NICU Weight (g) Sex Living Outcome Pediatric Complications Fetus ID Race Codes Race Delivery Type 3345.24 1 F Full Term [id number] Vaginal Delivery Demar Calculation Initial Demar Date Initial Exam Date Initial Exam Provider Initial Ultrasound Date Last Menstrual Period Date Ultra Sound Weeks Gestation 0 Eighteen To Twenty Week Demar Update Ultra Sound Date Fundal Height At Umbil Quickening Date Ultra Sound Latest Weeks Gestation Final Demar Confirmed By Final Demar Confirmed Date Final Demar Date Ultra Sound Latest Days Gestation 0 0 Menstrual History Last Menstrual Date Menses Monthly On Bcp Conception Prior Menses Frequency Hcg Plus Date Menarche Onset Age Delivery Information Delivery Date Delivery Type Labor Anesthesia Weeks Gestation Incision Type Labor Labor Length Hrs Delivered By Post Complications Tubal Sterilization Discharge Date Comments 3 39.2 GHTN / FTVD Discharge Information Feeding Method Contraceptive Method Maternal HG B and HCT Levels Ob Episode Information Episode Created Date Number of Fetuses Patient Bloodtype Patient rh Status Prepregnancy Weight lbs Domestic Partner Domestic Partner Phone Father Name Signal Operator Technical Status 07/07/19 25 1 AB Positive 247 Jake Shaw OPEN Fetus Data First Name Last Name Admitted to NICU Weight (g) Sex Living Outcome Pediatric Complications Fetus ID Race Codes Race Delivery Type [id number] Problems Problem Notes Problem Name Start Date End Date Resolution Snomed Code Not e Obese 797705949 BMI- will decide if wants NST at 37 weeks Demar Calculation Initial Demar Date Initial Exam Date Initial Exam Provider Initial Ultrasound Date Last Menstrual Period Date Ultra Sound Weeks Gestation 08/30/2024 02/16/2025 02/14/2025 11/24/2023 12 Eighteen To Twenty Week Demar Update Ultra Sound Date Fundal Height At Umbil Quickening Date Ultra Sound Latest Weeks Gestation Final Demar Confirmed By Final Demar Confirmed Date Final Demar Date Ultra Sound Latest Days Gestation 04/13/20 24 20 [email or web address] 07/07/2024 08/31/19 25 4 Pre- Flowsheet Flowsheet Date 07/07/2024 Burnham Score Blood Edema Fundus Height Fundus Units Glucose Ketones Leukocytes Nitrite Labor Signs Protein Cervic Dilation Cervic Effacement Cervic Station neg none none trace Type Weight in lbs Pre/Post Dialysis Refused Weight 281.713306474852 BP Diastolic BP Location Tested BP Systolic BP Type 84 120 Fetus Heart Rate Present Fetus Movement A Yes Comments Patient states that is havin g back pain, pain and discharge. AYUSH from [facility] office, had 1 vaginal delivery w/o complications in 2022 Sarai unknown gender now, wants low intervention delivery, continue routine care, precautions and education, discussed rsv, efw in us 43% Flowsheet Date 07/21/2024 Burnham Score Blood Edema Fundus Height Fundus Units Glucose Ketones Leukocytes Nitrite Labor Signs Protein Cervic Dilation Cervic Effacement Cervic Station neg none 34 cm Type Weight in lbs Pre/Post Dialysis Refused 283.587442110084 BP Diastolic BP Location Tested BP Systolic BP Type 84 125 Fetus Heart Rate Present A 146 Fetus Movement A Yes Comments Patient states that is havin g some pelvic pain, contractions and discharge. reviewed precautions and education f/u 2 weeks plan gbs, +FM getting over a cold, still has the cough Flowsheet Date 08/04/2024 Burnham Score Blood Edema Fundus Height Fundus Units Glucose Ketones Leukocytes Nitrite Labor Signs Protein Cervic Dilation Cervic Effacement Cervic Station neg trace 36 cm 1cm 40% -3 Type Weight in lbs Pre/Post Dialysis Refused 288.307638555780 BP Diastolic BP Location Tested BP Systolic BP Type 81 126 Fetus Heart Rate Present A 145 Fetus Movement A Yes Comments Patient is having pain, cont ractions, discharge and swelling. precautions and education, gbs collected, discussed testing for BMI, well-being, pt declined today f/u one week Flowsheet Date 08/13/2024 Burnham Score Blood Edema Fundus Height Fundus Units Glucose Ketones Leukocytes Nitrite Labor Signs Protein Cervic Dilation Cervic Effacement Cervic Station 2cm 40% -3 Type Weight in lbs Pre/Post Dialysis Refused 294.693121887206 BP Diastolic BP Location Tested BP Systolic BP Type 82 136 Fetus Heart Rate Present Fetus Movement A Yes Comments Pain, contractions and disch arge. +FM doing well, discussed swelling, precautions and education f/u 1 week Flowsheet Date 08/23/2024 Burnham Score Blood Edema Fundus Height Fundus Units Glucose Ketones Leukocytes Nitrite Labor Signs Protein Cervic Dilation Cervic Effacement Cervic Station neg trace 2cm 50% -3 Type Weight in lbs Pre/Post Dialysis Refused Weight 296.661921105925 BP Diastolic BP Location Tested BP Systolic BP Type 76 R arm 134 sitting Fetus Heart Rate Present A 135 Fetus Movement A Yes Comments Doing well, good movem ent. No ctx, LOF, or VB. Having some swelling in her bilateral feet. Overall feeling well. Unsure about EIL, will call if she decides to schedule. RTC 1 week. Flowsheet Date 08/27/2024 Burnham Score Blood Edema Fundus Height Fundus Units Glucose Ketones Leukocytes Nitrite Labor Signs Protein Cervic Dilation Cervic Effacement Cervic Station neg none Type Weight in lbs Pre/Post Dialysis Refused Weight 298.767533704006 BP Diastolic BP Location Tested BP Systolic BP Type 84 132 Fetus Heart Rate Present Fetus Movement A Yes Comments Patient is having some pain, contractions and discharge. NST today for tachycardia on doppler, desires IOL scheduled for next week, cervix 2-3/50/-2, precautions and education +FM Flowsheet Date 09/01/2024 Burnham Score Blood Edema Fundus Height Fundus Units Glucose Ketones Leukocytes Nitrite Labor Signs Protein Cervic Dilation Cervic Effacement Cervic Station Type Weight in lbs Pre/Post Dialysis Refused BP Diastolic BP Location Tested BP Systolic BP Type Fetus Heart Rate Present Fetus Movement Comments Flowsheet Date 09/01/2024 Burnham Score Blood Edema Fundus Height Fundus Units Glucose Ketones Leukocytes Nitrite Labor Signs Protein Cervic Dilation Cervic Effacement Cervic Station Type Weight in lbs Pre/Post Dialysis Refused Weight 296.498917880642 BP Diastolic BP Location Tested BP Systolic BP Type 83 128 Fetus Heart Rate Present Fetus Movement Comments Flowsheet Date 09/01/2024 Burnham Score Blood Edema Fundus Height Fundus Units Glucose Ketones Leukocytes Nitrite Labor Signs Protein Cervic Dilation Cervic Effacement Cervic Station neg none 2cm 60% -2 Type Weight in lbs Pre/Post Dialysis Refused 296.244196813314 BP Diastolic BP Location Tested BP Systolic BP Type 83 128 Fetus Heart Rate Present Fetus Movement A Yes Comments bpp 10/10, IOL in 2 days, pr ecautions and education +FMreviewed us mild left pyelectasis Menstrual History Last Menstrual Date Menses Monthly On Bcp Conception Prior Menses Frequency Hcg Plus Date Menarche Onset Age 0611/24/2023 Delivery Information Delivery Date Delivery Type Labor Anesthesia Weeks Gestation Incision Type Labor Labor Length Hrs Delivered By Post Complications Tubal Sterilization Discharge Date Comments Discharge Information Feeding Method Contraceptive Method Maternal HG B and HCT Levels
[2024-09-03 05:49] LABS: Basophils Percent Auto 0.3 % (0.2-1.2); Eosinophils Absolute Auto 0.1 K/mm3 (0-0.3); Eosinophils Percent Auto 0.9 % (0-4.4); Hematocrit 35.7 % (37.0-47.0); Hemoglobin 11.9 g/dL (12.0-15.0); Immature Granulocyte Absolute 0.11 K/mm3 (0.00-0.031); Immature Granulocyte Percent A 1.2 % (0-0.5); Lymphocytes Absolute Auto 1.95 K/mm3 (0.9-3.2); Lymphocytes Percent Auto 20.8 % (18.3-44.2); Mean Corpuscular HGB Conc 33.3 g/dl (32-36); Mean Corpuscular Hemoglobin 29.7 pg (26-34); Monocytes Absolute Auto 0.6 K/mm3 (0.1-0.6); Monocytes Percent Auto 6.3 % (2.6-8.5); Neutrophils Absolute Auto 6.6 K/mm3 (1.3-6.7); Neutrophils Percent Auto 70.5 % (45.5-73.1); Platelet Count Result 162 k/mm3 (150-375); Red Blood Count 4.01 M/mm3 (4.2-5.4); Red Cell Distribution Width 13.1 % (11.5-14.5); White Blood Count 9.4 K/mm3 (4.5-10.0)
[2024-09-03 06:36] LABS: Syphilis IgG/IgM Antibody Negative (Negative)
[2024-09-03 06:40] LABS: HIV 1/2 Ab P24 Ag Result Negative (Negative)
--- NOTE | 2024-09-03 07:19 | WPDOBADMIT ---
Obstetrics - Admit Note Admission Note: record reviewed. No pertinent additions to the history and/or any subsequent changes in the physical findings that are not consistent with the expected course of the were found. Additions to the history and/or subsequent changes in the physical findings follow. Admit for IOL, SVE /-2, AROM small amount of clear, odorless fluid, anticipate vaginal delivery
[2024-09-03] MEDS: LACTATED RINGERS 1,000 ML 125 ML IV CONT (13:31)
[2024-09-03] MEDS: OXYTOCIN 30 UNITS/NS 500 ML 30 UNITS/500 ML BAG IV CONT (13:39)
--- NOTE | 2024-09-03 18:11 | PM.OBPRVD ---
OB - Vaginal Delivery Note Procedure Delivery date: 09/03/24 Induction method: AROM and Per Pitocin Protocol Delivery monitor: External FHT and Internal Uterine Route of delivery: Laceration Description: None Specimen: No Quantitative Blood Loss (ml): 30 Anesthesia type: Epidural Disposition: Floor Complications: No immediate complications Baby Date of : 09/03/24 Time of : 18:00 Gestational Age by Date: 40 Infant gender: Female presentation: vertex position: Left Occiput Anterior Placenta delivery description: Spontaneous Cord Vessel Description: 3 Vessels score one minute: 8 score five minutes: 9
[2024-09-03] MEDS: OXYTOCIN 30 UNITS/NS 500 ML 30 UNITS/500 ML BAG 125 UNITS IV CONT (18:34)
--- NOTE | 2024-09-03 19:58 | OBPPTRN ---
Patient transferred to post room #282 via wheelchair. Support person present. Oriented to unit, room, information board, rooming in, admission packet and security measures. Patient verbalizes understanding.
[2024-09-04 00:45] VITALS: BP 118/69; PULSE 82; RESP 16; TEMP 37; O2SAT 98
[2024-09-04 04:45] VITALS: BP 135/82; PULSE 88; RESP 16; TEMP 37.1; O2SAT 98
[2024-09-04 05:06] LABS: Hematocrit 33.6 % (37.0-47.0); Hemoglobin 11.2 g/dL (12.0-15.0)
[2024-09-04 07:55] VITALS: BP 134/86; PULSE 80; RESP 18; TEMP 36.4; O2SAT 100
[2024-09-04] MEDS: DOCUSATE SODIUM 100 MG CAPSULE PO ×2 (07:57→17:09)
[2024-09-04] MEDS: MULTIVIT/MIN/PREN/FOL AC/IRON TABLET 1 TAB PO (07:57)
--- NOTE | 2024-09-04 08:16 | P.PNOB_ITS ---
OB - PN: Subj Subjective Date/time seen: 09/04/24 08:16 Patient comments: no complaints, pain well controlled, incisional pain, tolerating diet and flatus present OB - PN: Obj Data Labs 09/04/24 04:07 Labs: Laboratory Results - last 24 hr 09/04/24 04:07 Hgb 11.2 L Hct 33.6 L OB - PN A/P Plan day: 1 Plan: routine care Comments: No problems, routine care Time Spent With Patient Time: Total time spent is greater than 50% in coordination of care (as documented) at patient's floor/unit and/or counseling patient: Exam 2 Const: General: comfortable, no acute distress and alert Resp: Effort & Inspection: normal respiratory effort Auscultation: no crackles, no rales and no rhonchi Cardio: Rate: regular rate Heart sounds: no click, no murmurs and no rubs GI: Inspection: non-distended GI Palp: No Tenderness to palpation present (GI) Auscultation: normal bowel sounds Other: Incision - CDI Extrem: General: normal to inspection, no pedal edema and no calf tenderness
--- NOTE | 2024-09-04 08:16 | P.DS_ITS ---
DS: Admitting Diagnosis Discharge Date 09/04/2024 Admitting Diagnosis Term DS: Discharge Diagnosis Discharge Diagnosis (1) Term delivered: Code(s): O80 - Encounter for full-term uncomplicated delivery Status: Acute OB - DS: Summary OB Procedures : None OB Procedures Intrapartum: Spontaneous Vag Delivery OB Procedures: : None Peripartum Data Laceration Description: None Time Spent with Patient Time attestation: Total time spent providing and/or coordinating discharge services: DS: Data Data Completed and Pending Labs on day of discharge: Labs from last 24 hours 09/04/24 04:07 Hgb 11.2 L Hct 33.6 L Discharge Plan Discharge Discharging Clinician: Jd Soliz Patient Disposition: Home, Self-Care Activity: pelvic rest Diet: regular Patient Instructions: Antibiotic Form Patient Language: Trinidadian Stand Alone Forms: General Discharge Information Follow-up/Referrals: Jd Soliz MD [Physician] - Discharge Medications: Continued PNV [id number] [] 28 mg iron- 800 mcg tablet 1 tablet PO DAILY ergocalciferol (vitamin D2) 1,250 mcg (50,000 unit) capsule 50,000 unit PO WEEKLY cetirizine [24Hour Allergy] 10 mg tablet 10 mg PO DAILY PRN (Reason: allergy symptoms) Discontinued aspirin [Adult Low Dose Aspirin] 81 mg tablet,delayed release (DR/EC) 81 mg PO DAILY Date of admission: 09/03/24 04:57 Primary Care Provider: Mireille Frankel Admitting Provider: Jd Soliz Attending physician on admission: Dipika Duarte Condition: Stable
[2024-09-04] MEDS: IBUPROFEN 600 MG TABLET PO ×2 (11:06→17:09)
--- NOTE | 2024-09-04 15:10 | PC.NURSE ---
Met with mother to assess how the last few feedings have gone. Mom feels like baby latched well and there was less pain than with the previous feeds. Mom was able to notice a clicking sound and broke suction to latch again with good success. Reviewed in depth reasons for supplementation, expected output, and when to seek additional assistance. If mom has further nipple trauma or worsening pain, she will contact for a consult. Parents have the mom/baby guide for reference and the outpatient Services phone number. RN aware.
[2024-09-04 15:45] VITALS: BP 126/88; PULSE 82; RESP 16; TEMP 36.5; O2SAT 100
[2024-09-06 14:57] VITALS: BP 131/79; PULSE 94; RESP 18; TEMP 36.7; O2SAT 100
== END 2024-09-04 19:05 | disposition home or self-care (01) | DRG 807 ==
LOC: ANHLDR 05:00 → ANHOB2 21:39
PROVIDERS: Advanced Practice Midwife; Admitting Provider Obstetrics & Gynecology; PCP Family Medicine; Visit Provider Obstetrics & Gynecology
DX: O69.81X0 Labor and delivery complicated by cord around neck, without compression, not applicable or unspecified (principal); Z37.0 Single live birth; Z3A.40 40 weeks gestation of pregnancy
CPT/HCPCS: 36415; 85014; 85018; 85025; 86593; 86703; 86850; 86900; 86901; A9270; G0432; J2590; J2795; J7120